=== PATIENT | male | born 1980 | race Caucasian/White ===

== ENCOUNTER 2021-12-25 17:51 | Inpatient (IN) | payer OTHER ==
[2021-12-25 18:16] VITALS: BMI 25.2
[2021-12-25] MEDS ORDERED: MAGNESIUM CITRATE 300 ML BOTTLE PO PRN (20:27)
[2021-12-25] MEDS ORDERED: P-EPHED 60MG/TRIPROLIDI 2.5MG TABLET PO PRN (20:27)
[2021-12-25] MEDS ORDERED: MAG HYDROX/AL HYDROX/SIMETH 30 ML UNIT-DOSE CUP PO PRN (20:27)
[2021-12-25] MEDS ORDERED: NALOXONE HCL 0.4 MG/ML VIAL IM PRN (20:27)
[2021-12-25] MEDS ORDERED: MAGNESIUM HYDROX 2400MG/30ML ORAL SUSPENSION 30 ML CUP PO PRN (20:27)
[2021-12-25] MEDS ORDERED: BENZOCAINE/MENTHOL (CHLORASEPTIC ) LOZENGE MM PRN (20:27)
[2021-12-25] MEDS ORDERED: ACETAMINOPHEN 325 MG TABLET (FP) PO PRN ×2 (20:27)
[2021-12-25] MEDS ORDERED: guaiFENesin 200 MG/10 ML 10 ML UNIT-DOSE CUPS PO PRN (20:27)
[2021-12-25] MEDS ORDERED: LOPERAMIDE HCL 2 MG CAPSULE PO PRN (20:27)
[2021-12-25] MEDS ORDERED: BISMUTH SUBSALICYLATE 524 MG/30 ML PO PRN (20:27)
[2021-12-25] MEDS ORDERED: NALOXONE HCL (KLOXXADO) 8 MG SPRAY NS PRN (20:27)
[2021-12-25] MEDS ORDERED: IBUPROFEN 400 MG TABLET (FP) PO PRN (20:27)
[2021-12-25] MEDS ORDERED: IBUPROFEN 600 MG TABLET (FP) PO PRN (20:27)
[2021-12-25] MEDS ORDERED: DICYCLOMINE HCL 10 MG CAPSULE PO PRN (20:27)
[2021-12-25] MEDS ORDERED: hydrOXYzine PAMOATE 50 MG CAPSULE (FP) PO ONE (20:32)
[2021-12-25] MEDS ORDERED: hydrOXYzine PAMOATE 25 MG CAPSULE (FP) PO ONE (20:44)
[2021-12-25] MEDS: MELATONIN 5 MG TABLETS PO SCH (22:33)
[2021-12-25] MEDS: THIAMINE HCL 100 MG TABLET (FP) PO SCH (22:34)
[2021-12-25] MEDS: METHOCARBAMOL 500 MG TABLET PO PRN (22:34)
[2021-12-26] MEDS: METHOCARBAMOL 500 MG TABLET PO PRN ×2 (05:26→17:58)
[2021-12-26] MEDS: NICOTINE POLACRILEX 2 MG GUM BUC PRN ×6 (07:04→22:31)
[2021-12-26] MEDS ORDERED: cloNIDine HCL 0.1 MG TABLET PO PRN (08:49)
[2021-12-26] MEDS ORDERED: methaDONE HCL 10 MG TABLET (FOR DETOX USE ONLY) PO ONE (09:45)
[2021-12-26] MEDS: PRENATAL VITAMINS W/ FOLIC ACID TABLET (FP) PO SCH (10:09)
[2021-12-26] MEDS: NICOTINE 14 MG/24 HOURS TOPICAL PATCH TD SCH (10:09)
[2021-12-26 14:32] LABS: HEMATOCRIT 42.3 % (35.4-49); HEMOGLOBIN 14.8 GM/dL (11.7-16.9); MCH 29.9 pg (25.7-33.7); MEAN CELL VOLUME 85.5 fl (80-96); MEAN PLT VOLUME 7.5 fl (7.5-11.1); PLATELET COUNT 317 10^3/uL (134-434); RBC 4.95 M/mm3 (4.00-5.60); RDW 12.5 % (11.9-15.9); WHITE BLOOD COUNT 8.2 K/mm3 (4.0-10.0)
[2021-12-26 14:41] LABS: BLOOD UREA NITROGEN 16.3 mg/dL (7-18); CALCIUM 8.8 mg/dL (8.5-10.1)
[2021-12-26 14:42] LABS: ALBUMIN 3.2 g/dl (3.4-5.0)
[2021-12-26 14:44] LABS: CREATININE 0.9 mg/dL (0.55-1.3)
[2021-12-26 14:45] LABS: BILIRUBIN,TOTAL 0.5 mg/dL (0.2-1); TOT PROT 6.4 g/dl (6.4-8.2)
[2021-12-26] MEDS: MELATONIN 5 MG TABLETS PO SCH (22:30)
[2021-12-26] MEDS: QUEtiapine FUMARATE 100 MG TABLET (FP) PO SCH (22:30)
[2021-12-26] MEDS: THIAMINE HCL 100 MG TABLET (FP) PO SCH (22:30)
[2021-12-27] MEDS: NICOTINE POLACRILEX 2 MG GUM BUC PRN ×5 (05:49→22:47)
[2021-12-27] MEDS: NICOTINE 14 MG/24 HOURS TOPICAL PATCH TD SCH (09:34)
[2021-12-27] MEDS: PRENATAL VITAMINS W/ FOLIC ACID TABLET (FP) PO SCH (09:34)
[2021-12-27] MEDS: THIAMINE HCL 100 MG TABLET (FP) PO SCH (22:10)
[2021-12-27] MEDS: QUEtiapine FUMARATE 100 MG TABLET (FP) PO SCH (22:11)
[2021-12-27] MEDS: MELATONIN 5 MG TABLETS PO SCH (22:11)
[2021-12-28] MEDS: NICOTINE POLACRILEX 2 MG GUM BUC PRN ×2 (08:06→17:56)
[2021-12-28] MEDS ORDERED: methaDONE HCL 10 MG TABLET (FOR DETOX USE ONLY) PO ONE (10:00)
[2021-12-28] MEDS: METHOCARBAMOL 500 MG TABLET PO PRN ×2 (10:03→17:55)
[2021-12-28] MEDS: PRENATAL VITAMINS W/ FOLIC ACID TABLET (FP) PO SCH (10:03)
[2021-12-28] MEDS: NICOTINE 14 MG/24 HOURS TOPICAL PATCH TD SCH (10:04)
[2021-12-28] MEDS: MELATONIN 5 MG TABLETS PO SCH (22:03)
[2021-12-28] MEDS: QUEtiapine FUMARATE 100 MG TABLET (FP) PO SCH (22:03)
[2021-12-28] MEDS: THIAMINE HCL 100 MG TABLET (FP) PO SCH (22:03)
[2021-12-29 10:18] LABS: PH,URINE 6.5 (5.0-8.0); URINE APPEARANCE CLEAR; URINE BILIRUBIN NEGATIVE (NEGATIVE); URINE COLOR YELLOW; URINE GLUCOSE (UA) NEGATIVE (NEGATIVE); URINE KETONE NEGATIVE (NEGATIVE); URINE LEUK ESTERASE NEGATIVE (NEGATIVE); URINE NITRITE NEGATIVE (NEGATIVE); URINE PROTEIN NEGATIVE (NEGATIVE); URINE UROBILINOGEN 0.2 mg/dL (0.2-1.0)
[2021-12-29] MEDS: NICOTINE 14 MG/24 HOURS TOPICAL PATCH TD SCH (10:46)
[2021-12-29] MEDS: NICOTINE POLACRILEX 2 MG GUM BUC PRN ×2 (10:48→19:21)
[2021-12-29] MEDS: PRENATAL VITAMINS W/ FOLIC ACID TABLET (FP) PO SCH (10:48)
[2021-12-29] MEDS: METHOCARBAMOL 500 MG TABLET PO PRN (19:21)
[2021-12-29] MEDS: MELATONIN 5 MG TABLETS PO SCH (22:06)
[2021-12-29] MEDS: QUEtiapine FUMARATE 100 MG TABLET (FP) PO SCH (22:06)
[2021-12-29] MEDS: THIAMINE HCL 100 MG TABLET (FP) PO SCH (22:07)
[2021-12-30] MEDS ORDERED: methaDONE HCL 10 MG TABLET (FOR DETOX USE ONLY) PO ONE (10:00)
[2021-12-30] MEDS: PRENATAL VITAMINS W/ FOLIC ACID TABLET (FP) PO SCH (10:43)
[2021-12-30] MEDS: NICOTINE 14 MG/24 HOURS TOPICAL PATCH TD SCH (10:43)
[2021-12-30] MEDS: METHOCARBAMOL 500 MG TABLET PO PRN (20:12)
[2021-12-30] MEDS: NICOTINE POLACRILEX 2 MG GUM BUC PRN (20:12)
[2021-12-30] MEDS: QUEtiapine FUMARATE 100 MG TABLET (FP) PO SCH (22:09)
[2021-12-30] MEDS: THIAMINE HCL 100 MG TABLET (FP) PO SCH (22:09)
[2021-12-30] MEDS: MELATONIN 5 MG TABLETS PO SCH (22:10)
[2021-12-31 09:24] VITALS: BP 120/59; PULSE 69; RESP 17; TEMP 98
[2021-12-31] MEDS: PRENATAL VITAMINS W/ FOLIC ACID TABLET (FP) PO SCH (10:41)
[2021-12-31] MEDS: NICOTINE 14 MG/24 HOURS TOPICAL PATCH TD SCH (10:42)
== END 2021-12-31 11:42 | disposition home or self-care (01) | DRG 773 ==
LOC: YASAS 17:51 → Y6N 21:04
PROVIDERS: ADMIT Allergy & Immunology; ATTEND Surgery
PROC: HZ2ZZZZ Detoxification Services for Substance Abuse Treatment (ICD-10-PCS; principal; 2021-12-25)
DX: F11.23 Opioid dependence with withdrawal (principal); F17.210 Nicotine dependence, cigarettes, uncomplicated; F31.9 Bipolar disorder, unspecified; F19.282 Other psychoactive substance dependence with psychoactive substance-induced sleep disorder; F19.24 Other psychoactive substance dependence with psychoactive substance-induced mood disorder; Z62.810 Personal history of physical and sexual abuse in childhood; Z91.410 Personal history of adult physical and sexual abuse
CPT/HCPCS: 36415; 80053; 81003; 85027; 86780; 87811; 93005; 93010; C9803-CS; J0735; U0003; U0005

== ENCOUNTER 2023-08-18 22:04 | Inpatient (IN) | payer OTHER ==
[2023-08-18 22:35] VITALS: BMI 14.5
[2023-08-18] MEDS ORDERED: hydrOXYzine PAMOATE 25 MG CAPSULE (FP) PO PRN (23:10)
[2023-08-18] MEDS ORDERED: IBUPROFEN 400 MG TABLET (FP) PO PRN (23:10)
[2023-08-18] MEDS ORDERED: DICYCLOMINE HCL 10 MG CAPSULE PO PRN (23:10)
[2023-08-18] MEDS ORDERED: ONDANSETRON *ODT* 4 MG TABLET SL PRN (23:10)
[2023-08-18] MEDS ORDERED: NALOXONE HCL 0.4 MG/ML VIAL IM PRN (23:10)
[2023-08-18] MEDS ORDERED: LOPERAMIDE HCL 2 MG CAPSULE PO PRN (23:10)
[2023-08-18] MEDS ORDERED: NALOXONE HCL (KLOXXADO) 8 MG SPRAY NS PRN (23:10)
[2023-08-18] MEDS ORDERED: guaiFENesin 600 MG TABLET.ER (FP) PO PRN (23:10)
[2023-08-18] MEDS ORDERED: BENZOCAINE/MENTHOL (CHLORASEPTIC ) LOZENGE MM PRN (23:10)
[2023-08-18] MEDS ORDERED: MAG HYDROX/AL HYDROX/SIMETH 30 ML UNIT-DOSE CUP PO PRN (23:10)
[2023-08-18] MEDS ORDERED: IBUPROFEN 600 MG TABLET (FP) PO PRN (23:10)
[2023-08-18] MEDS ORDERED: MAGNESIUM HYDROX 2400MG/30ML ORAL SUSPENSION 30 ML CUP PO PRN (23:10)
[2023-08-18] MEDS ORDERED: POLYETHYLENE GLYCOL (HEALTHYLAX) 3350 17 GM PACKET PO PRN (23:10)
[2023-08-18] MEDS ORDERED: BENZONATATE 200 MG CAPSULE PO PRN (23:10)
[2023-08-18] MEDS ORDERED: NICOTINE POLACRILEX 4 MG GUM BUC PRN (23:10)
[2023-08-18] MEDS ORDERED: METHOCARBAMOL 500 MG TABLET PO PRN (23:10)
[2023-08-18] MEDS ORDERED: ACETAMINOPHEN 325 MG TABLET (FP) PO PRN (23:10)
[2023-08-18] MEDS ORDERED: BISMUTH SUBSALICYLATE 524 MG/30 ML PO PRN (23:10)
[2023-08-18 23:37] VITALS: RESP 18
[2023-08-19 06:14] VITALS: BP 126/72; PULSE 76; TEMP 98
[2023-08-19] MEDS ORDERED: PRENATAL VITAMINS W/ FOLIC ACID TABLET (FP) PO SCH (10:00)
[2023-08-19] MEDS ORDERED: NICOTINE 14 MG/24 HOURS TOPICAL PATCH TD SCH (10:00)
[2023-08-19] MEDS ORDERED: THIAMINE HCL 100 MG TABLET (FP) PO SCH (22:00)
[2023-08-19] MEDS ORDERED: MELATONIN 5 MG TABLETS PO SCH (22:00)
== END 2023-08-19 08:43 | disposition left against medical advice (07) | DRG 770 ==
LOC: YASAS 22:04 → Y3N 23:16
PROVIDERS: ADMIT Allergy & Immunology; ATTEND Surgery
PROC: HZ2ZZZZ Detoxification Services for Substance Abuse Treatment (ICD-10-PCS; principal; 2023-08-18)
DX: F11.20 Opioid dependence, uncomplicated (principal); F14.20 Cocaine dependence, uncomplicated; F17.210 Nicotine dependence, cigarettes, uncomplicated; F31.9 Bipolar disorder, unspecified; Z59.01 Sheltered homelessness